=== PATIENT | female | born 1960 | race African-American/Black ===

== ENCOUNTER 2020-08-17 06:44 | Emergency (ER) | payer OTHER ==
[~2020-08-17] VITALS: Ht 170.2 cm; Wt 63.6 kg
[~2020-08-17 06:44] MED LIST: AMLO-258 PO; LISI-661 PO; PROP40TA7 PO; ZIPR80CA2 PO
[2020-08-17] MEDS ORDERED: METO25 PO (06:54)
[2020-08-17] MEDS ORDERED: ACYCLOVIR 200 MG CAPSULE PO ONE (07:45)
[2020-08-17 08:00] VITALS: BP 0/0
== END 2020-08-17 08:05 | disposition home or self-care (01) ==
LOC: EMS 06:45
DX: B00.9 Herpesviral infection, unspecified (principal); F31.9 Bipolar disorder, unspecified; I10 Essential (primary) hypertension; F17.210 Nicotine dependence, cigarettes, uncomplicated; Z79.899 Other long term (current) drug therapy

== ENCOUNTER 2020-08-28 06:54 | Emergency (ER) | payer OTHER ==
[~2020-08-28] VITALS: Ht 172.7 cm; Wt 68.2 kg
[~2020-08-28 06:54] MED LIST changes: +METO25 PO; -PROP40TA7 PO
[2020-08-28 07:07] VITALS: BP 0/0
[2020-08-28] MEDS ORDERED: MAGNESIUM SULFATE 2 GM, MVI, ADULT NO.1 WITH VIT K 10 ML, THIAMINE 100 MG, FOLIC ACID 1... IV ONE ×5 (07:45)
[2020-08-28] MEDS ORDERED: LORazepam 2 MG/ML VIAL IVP ONE (07:45)
== END 2020-08-28 08:43 | disposition home or self-care (01) ==
LOC: EMS 07:04
DX: A60.09 Herpesviral infection of other urogenital tract (principal); F17.210 Nicotine dependence, cigarettes, uncomplicated; I10 Essential (primary) hypertension
CPT/HCPCS: 99282; J3411; J3475; J3490 ×2; J7030

== ENCOUNTER 2024-10-13 17:18 | Emergency (ER) | payer MEDICARE, MEDICAID ==
[~2024-10-13] VITALS: Ht 162.6 cm; Wt 54.5 kg
[~2024-10-13 17:18] MED LIST changes: -LISI-661 PO; +LISI-893 PO
[2024-10-13 17:24] VITALS: BP 197/113; PULSE 98; RESP 12; TEMP 98; O2SAT 97
[2024-10-13 18:58] LABS: BASOPHILS % (AUTO) 1.2 % (0.0-2.0); HEMATOCRIT 44.1 % (36-46); HEMOGLOBIN 14.4 g/dL (12.0-16.0); LYMPHOCYTES # (AUTO) 1.6 K/uL (1.0-4.8); MEAN CORPUSCULAR HEMOGLOBIN 31.1 pg (26.0-34.0); MEAN CORPUSCULAR HGB CONC 32.6 G/dL (31.0-37.0); MEAN CORPUSCULAR VOLUME 95 fL (80-100); MONOCYTES # (AUTO) 0.5 K/uL (0.1-1.0); MONOCYTES % (AUTO) 7.4 % (2.0-9.0); NEUTROPHILS # (AUTO) 4.1 K/uL (1.8-7.7); NEUTROPHILS % (AUTO) 65.4 % (40.0-70.0); PLATELET COUNT (AUTO) 275 K/uL (150-450); RED BLOOD CELL COUNT(AUTO) 4.62 MIL/uL (4.00-5.20); RED CELL DISTRIBUTION WIDTH 13.6 % (11.5-14.5); WHITE BLOOD COUNT (AUTO) 6.3 K/uL (4.5-11.0)
[2024-10-13 19:07] LABS: ANION GAP 8 mmol/L (8-16); CALCIUM, TOTAL 8.1 mg/dL (8.8-10.5); CARBON DIOXIDE 27 mmol/L (22-29); CHLORIDE 104 mmol/L (98-107); CREATININE 1.06 mg/dL (0.60-1.30); GLOMERULAR FILTR. RATE CALC > 60 mL/min (>60); GLUCOSE,RANDOM 139 mg/dL (70-110); POTASSIUM 3.9 mmol/L (3.5-5.1); SODIUM SERUM 139 mmol/L (136-145); UREA NITROGEN, BLOOD 15 mg/dL (7-18)
[2024-10-13 19:18] LABS: ALCOHOL, BLOOD (SERUM) < 3 mg/dL (0-10)
[2024-10-13 19:22] LABS: COVID AG,FIA SOURCE NASAL SWAB
[2024-10-13] MEDS: ZIPRASIDONE HCL 20 MG CAPSULE PO ONE (19:28)
[2024-10-13 19:31] LABS: APPEARANCE,URINE HAZY (CLEAR); BILIRUBIN,URINE NEGATIVE (NEGATIVE); COLOR,URINE LIGHT YELLOW (YELLOW); GLUCOSE, URINE (UA) NEGATIVE (NEGATIVE); KETONES,URINE NEGATIVE (NEGATIVE); LEUKOCYTE ESTERASE ,URINE LARGE (NEGATIVE); NITRATE,URINE NEGATIVE (NEGATIVE); OCCULT BLOOD,URINE NEGATIVE (NEGATIVE); PH,URINE 7.5 (5.0-8.0); PH,URINE DRUG SCREEN 7.5 (5.0-8.0); PROTEIN,URINE TRACE mg/dL (NEGATIVE); SPECIFIC GRAVITIY, URINE 1.016 (1.003-1.030); UROBILINOGEN,URINE <=1.0 mg/dL (<=1.0)
[2024-10-13 19:38] LABS: ALCOHOL, URINE DRUG SCREEN NEGATIVE (NEGATIVE); AMPHET/METH SCREEN,URINE NEGATIVE (NEGATIVE); BARBITURATE SCREEN, URINE NEGATIVE (NEGATIVE); BENZODIAZEPINES SCREEN,URINE NEGATIVE (NEGATIVE); CANNABINOID SCREEN,URINE NEGATIVE (NEGATIVE); COCAINE SCREEN,URINE NEGATIVE (NEGATIVE); METHADONE SCREEN, URINE NEGATIVE (NEGATIVE); OPIATE SCREEN,URINE NEGATIVE (NEGATIVE); PHENCYCLIDINE SCREEN,URINE NEGATIVE (NEGATIVE)
[2024-10-13 19:46] LABS: SARS-COV2 (COVID) ANTIGEN,FIA Negative (Negative)
[2024-10-13 20:03] LABS: BACTERIA,URINE Few /HPF (None Seen); RBC,URINE 0-2 /HPF (0-2); SQUAMOUS EPITHELIAL CELL,UR Moderate /LPF (None Seen)
== END 2024-10-13 20:55 | disposition home or self-care (01) ==
LOC: EMS 17:18
DX: F31.9 Bipolar disorder, unspecified (principal); I10 Essential (primary) hypertension; F17.210 Nicotine dependence, cigarettes, uncomplicated; Z79.899 Other long term (current) drug therapy; Z20.822 Contact with and (suspected) exposure to COVID-19
CPT/HCPCS: 99284; 99406; 87426; 80048; 81001; 85025; 87086; 36415; 80307; G0480

== ENCOUNTER 2024-10-26 02:09 | Emergency (ER) | payer MEDICARE, MEDICAID ==
[~2024-10-26] VITALS: Ht 172.7 cm; Wt 62.7 kg
[2024-10-26 02:17] VITALS: TEMP 97.7
[2024-10-26 03:08] LABS: COVID AG,FIA SOURCE NASAL SWAB
[2024-10-26 04:05] LABS: INFLUENZA TYPE A NEGATIVE FOR TYPE A (NEGATIVE); INFLUENZA TYPE B NEGATIVE FOR TYPE B (NEGATIVE)
[2024-10-26 04:09] LABS: SARS-COV2 (COVID) ANTIGEN,FIA Negative (Negative)
[2024-10-26 05:27] VITALS: BP 149/86; PULSE 85; RESP 17; O2SAT 96
[2024-10-26] MEDS ORDERED: BENZ-227 PO (05:34)
[2024-10-26] MEDS: BENZONATATE 100 MG CAPSULE PO ONE (05:38)
== END 2024-10-26 05:42 | disposition home or self-care (01) ==
LOC: EMS 02:09
DX: J06.9 Acute upper respiratory infection, unspecified (principal); F31.9 Bipolar disorder, unspecified; I10 Essential (primary) hypertension; F17.210 Nicotine dependence, cigarettes, uncomplicated; B97.89 Other viral agents as the cause of diseases classified elsewhere; Z79.899 Other long term (current) drug therapy; Z87.891 Personal history of nicotine dependence; Z20.822 Contact with and (suspected) exposure to COVID-19
CPT/HCPCS: 87804; 99283

== ENCOUNTER 2024-10-29 04:14 | Emergency (ER) | payer MEDICARE, MEDICAID ==
[~2024-10-29] VITALS: Ht 172.7 cm; Wt 77.0 kg
[~2024-10-29 04:14] MED LIST changes: +BENZ-227 PO
[2024-10-29] MEDS ORDERED: BENZ-227 PO (04:50)
[2024-10-29 04:51] VITALS: BP 141/78; PULSE 88; RESP 16; TEMP 98.1; O2SAT 98
[2024-10-29] MEDS: BENZONATATE 100 MG CAPSULE PO ONE (04:55)
== END 2024-10-29 05:15 | disposition home or self-care (01) ==
LOC: EMS 04:15
DX: J06.9 Acute upper respiratory infection, unspecified (principal); B97.89 Other viral agents as the cause of diseases classified elsewhere; F31.9 Bipolar disorder, unspecified; I10 Essential (primary) hypertension; F17.210 Nicotine dependence, cigarettes, uncomplicated; Z79.899 Other long term (current) drug therapy
CPT/HCPCS: 99283

== ENCOUNTER 2025-03-27 21:55 | Emergency (ER) | payer MEDICARE, MEDICAID ==
[~2025-03-27] VITALS: Ht 172.7 cm; Wt 63.6 kg
[2025-03-28] MEDS ORDERED: METO25 PO (05:01)
[2025-03-28] MEDS ORDERED: LISI-893 PO (05:01)
[2025-03-28 05:08] VITALS: BP 141/82; PULSE 63; RESP 18; O2SAT 100
== END 2025-03-28 05:31 | disposition home or self-care (01) ==
LOC: EMS 21:56
DX: S61.411D Laceration without foreign body of right hand, subsequent encounter (principal); I10 Essential (primary) hypertension; F31.9 Bipolar disorder, unspecified; F17.210 Nicotine dependence, cigarettes, uncomplicated; Z79.899 Other long term (current) drug therapy; Z76.0 Encounter for issue of repeat prescription
CPT/HCPCS: 99281; 99283

== ENCOUNTER 2025-08-27 09:51 | Emergency (ER) | payer MEDICAID, MEDICARE ==
[~2025-08-27] VITALS: Ht 172.7 cm; Wt 63.7 kg
[2025-08-27 10:00] VITALS: BP 134/77; PULSE 98; RESP 18; TEMP 98.5; O2SAT 99
== END 2025-08-27 10:11 | disposition left against medical advice (07) ==
LOC: EMS 09:52
DX: S60.022A Contusion of left index finger without damage to nail, initial encounter (principal); I10 Essential (primary) hypertension; F31.9 Bipolar disorder, unspecified; Z79.899 Other long term (current) drug therapy; X58.XXXA Exposure to other specified factors, initial encounter; Y93.89 Activity, other specified; Y92.89 Other specified places as the place of occurrence of the external cause; Y99.8 Other external cause status
CPT/HCPCS: 99282; Z7502